=== PATIENT | female | born 1975 | race Caucasian/White ===

== ENCOUNTER 2016-08-11 09:39 | Outpatient (CLI) | payer MEDICARE ==
--- NOTE | ~2016-08-11 | HEMODYNAMI ---
PATIENT:HOWARD ROBERTS MEDICAL RECORD: [id number] : 73 LOCATION:[facility] ADMISSION DATE: 08/11/16 Generatedon:08/11/201613:11 Patient name: HOWARD ROBERTS Patient #: [id number] SSN: : 1975 Date of study: 08/11/2016 Page: Of Hemodynamic Procedure Report Patient Data Patient Demographics Procedure consent was obtained First Name: HOWARD Gender: Female Last Name: ALEJANDRA : 1975 [facility] Initial: SHAN Age: 41 year(s) Patient #: [id number] Race: Additional ID: [id number] Contact details Address: [address] [place] [address] [address] State: [place] City: [place] Zip code: [address] Past Medical History Allergies Allergen Reaction Date Comments Reported Codeine 08/11/2016 Admission Admission Data Admission Date: 08/11/2016 Admission Time: 9:39 Admit Source: Emergency Insurance Payor: Medicare, department Medicaid Weight (lbs.): 180 Weight (kg.): 81.65 Medications upon Admission Medications Dosage Times Administered Last Remarks per Delivery Day Date and Time Aspirin Yes 08/11/2016 (any) 0:00 Lab Results Lab Result Date: 08/11/2016 Lab Result Time: 0:00 Biochemistry Name Units Result Min Max CK-MB ng/ml 0.2 --(*---)-- 0 3.6 Creatinine mg/dl 1.4 --(----)*- 0.6 1.3 Troponin l ng/ml 0.017 --(-*--)-- 0 0.06 CBC Name Units Result Min Max Hemoglobin g/dl 13.9 --(*---)-- 13.5 17.5 Procedure Procedure Types Cath Procedure Diagnostic Procedure LHC LHC w/Coronaries w/Grafts PCI Procedure Coronary Stent Initial Procedure Description Procedure Date Procedure Date: 08/11/2016 Procedure Start Time: 12:52 Procedure End Time: 13:06 Procedure Staff Name Function Tristan Quintero MD Performing Physician Jordan Varner RT Scrub Marques Salinas RN Nurse Travis Howe RT Reserves Clerk Cassie Miller RT Monitor Procedure Data Cath Procedure Fluoroscopy Diagnostic fluoroscopy Total fluoroscopy Time: 3.2 time: 3.2 min min Diagnostic fluoroscopy Total fluoroscopy dose: 452 dose: 452 mGy mGy Contrast Material Contrast Material Type Amount (ml) Isovue 300 84 Entry Location Entry Primary Successful Side Size Upsize Upsize Entry Closure Succes sful Closure Location (Fr) 1 (Fr) 2 (Fr) Remarks Device Remarks Femoral Right 5 Fr 6 Fr Vascade artery Short Closure System Diagnostic catheters Device Type Used For End Catheter Placement Cordis 5Fr Pigtail LV Angiography Catheter (MP) Cordis 5Fr JL 4.0 Left Coronary Catheter (MP) Angiography Cordis Infinity 5Fr AR 2 SVG Angiography MOD catheter Procedure Complications No complications Procedure Medications Medication Administration Route Dosage Oxygen NC 2 l/min Benadryl I.V. 50 mg 0.9% NaCl I.V. 100 ml/hr Pepcid I.V. 20 mg Lidocaine 2% added to field 20 Heparin Flush Bag added to field 2 bags (1000units/500ml NS) Versed I.V. 1 mg Fentanyl I.V. 50 mcg Versed I.V. 1 mg Fentanyl I.V. 50 mcg Fentanyl I.V. 50 mcg Heparin Bolus I.V. 4000 units Integrilin (Bolus I.V. 7.3 ml 2mg/ml) Plavix P.O. 600 mg Hemodynamics Rest HGB: 13.9 (g/dl) Heart Rate: 80 (bpm) Snapshots Pre Cath Intra NCS Post Cath Vital Signs Time Heart Resp SPO2 etCO2 TQ8mugy NIBP (mmHg) Rhythm Pain Sedation Rate (ipm) (%) (mmHg) (mmHg) Status Level (bpm) 12:45:02 90 22 100 0 0 164/87(128) NSR 0 (11) 10(A) , No pain 12:49:21 86 17 100 0 0 153/82(114) NSR 0 (11) 10(A) , No pain 12:53:46 86 16 100 0 0 154/76(110) NSR 0 (11) 10(A) , No pain 12:58:04 87 19 99 0 0 150/77(116) NSR 0 (11) 9(A) , No pain 13:02:20 70 18 100 0 0 127/69(101) NSR 0 (11) 9(A) , No pain 13:06:30 92 16 99 0 0 148/89(121) NSR 0 (11) 10(A) , No pain Medications Time Medication Route Dose Verified Delivered Reason Notes Effectiveness by by 12:40:05 Oxygen NC 2 Tristan Buffie used for l/min Leon Salinas RN procedure 12:40:11 Benadryl I.V. 50 mg Tristan Buffie used for Leon Sailnas RN procedure 12:43:21 Pepcid I.V. 20 mg Tristan Petersenie Per physician pt sta davy acid Leon Salinas RN reflux/heartburn 12:43:21 0.9% NaCl I.V. 100 Tristan Buffie used for ml/hr Leon Salinas RN procedure 12:46:20 Lidocaine 2% added 20ml Tristan Tristan for local to vial Leon Quintero MD anesthetic field 12:46:31 Heparin Flush added 2 Tristan Tristan used for Bag to bags Leon Quintero MD procedure (1000units/500ml field NS) 12:50:49 Versed I.V. 1 mg Tristan Petersenie for sedation Leon Salinas RN 12:50:55 Fentanyl I.V. 50 Tristan Buffie for sedation mcg Leon Salinas RN 12:54:18 Versed I.V. 1 mg Tristan Buffie for sedation Leon Salinas RN 12:54:21 Fentanyl I.V. 50 Tristan Buffie for sedation mcg Leon Salinas RN 12:57:10 Fentanyl I.V. 50 Tristan Buffie for sedation mcg Leon Salinas RN 12:59:32 Heparin Bolus I.V. 4000 Tristan Buffie for verifi ed with dr stiven Salinas RN anticoagulation [facility] 12:59:40 Integrilin I.V. 7.3 Tristan Petersenie for (Bolus 2mg/ml) ml Leon Salinas RN antiplatelet therapy 13:09:19 Plavix P.O. 600 Tristan Petersenie for mg Leon Salinas RN antiplatelet therapy Procedure Log Time Note 12:17:27 Travis OBRIEN(R) sent for patient. Start room use. 12:17:28 Time tracking: Regular hours 12:17:32 Plan of Care:Hemodynamics will remain stable., Cardiac rhythm will remain stable., Comfort level will be maintained., Respiratory function will remain adequate., Patient/ family verbilizes understanding of procedure., Procedure tolerated without complication., Recovers from procedure without complications.. 12::46 Lab Result : Troponin l 0.017 ng/ml 12::46 Lab Result : Hemoglobin 13.9 g/dl 12::46 Lab Result : Creatinine 1.4 mg/dl 12:: Lab Result : CK-MB 0.2 ng/ml 12:25:12 Admit Source: Emergency department 12::18 Insurance Payor : Medicare, Medicaid 12:34:17 Patient received from ED to CCL 2 Alert and oriented. Tansferred to table in Supine position. 12:34:18 Warm blankets applied, and danika hugger turned on for patient comfort. 12:34:18 Correct patient and procedure confirmed by team. 12:34:20 Signed procedure consent form obtained from patient. 12:34:21 ECG and BP/O2 sat monitors applied to patient. 12:34:23 Full Disclosure recording started 12:40:05 Oxygen 2 l/min NC was given by Marques Salinas RN; used for procedure; 12:40:11 Benadryl 50 mg I.V. was given by Marques Salinas RN; used for procedure; 12:43:21 Pepcid 20 mg I.V. was given by Marques Salinas RN; Per physician; pt states acid reflux/heartburn 12:43:21 0.9% NaCl 100 ml/hr I.V. was given by Marques Salinas RN; used for procedure; 12:43:45 Baseline sample Acquired. 12:43:45 Vital chart was started 12:43:55 Rhythm: sinus rhythm 12:44:02 H&P Date Dictated: 08/11/2016 Within 30 days and on chart.. 12:44:03 Pre-procedure instructions explained to patient. 12:44:04 Pre-op teaching completed and patient verbalized understanding. 12:44:05 Family unavailable. 12:44:08 Patient NPO since Breakfast. 12:44:16 Patient allergic to Codeine 12:44:23 Is the patient allergic to Iodine/contrast media? No. 12:44:29 Is patient on blood thinner?No 12:44:31 Patient diabetic? Yes. 12:44:33 If diabetic: On Metformin? No 12:44:34 ----Pre-sedation anethsthesia assessment.---- 12:44:38 Previous problem with sedation/anesthesia? No ? 12:45:42 Snore? Yes 12:45:44 Sleep apnea? Yes 12:45:46 Deviated septum? No 12:45:47 Opens mouth fully? Yes 12:45:48 Sticks out tongue? Yes 12:45:53 Airway obstruction? No ? 12:45:58 Dentures? Yes in tight\ 12:46:02 Pre procedure: right dorsailis pedis pulse 1+ Palpable, but thready & weak; easily obliterated 12:46:05 Patient pain scale 1/10 ?. 12:46:11 IV patent on arrival in left antecubital with 0.9% NaCl at 10ml/hr. 12:46:16 Lab results completed and on chart. 12:46:20 Lidocaine 2% 20ml vial added to field was given by Tristan Quintero MD; for local anesthetic; 12:46:21 Right groin area was prepped with chlora-prep and draped in sterile fashion 12:46:22 Alarms reviewed by R. N. 12:46:22 Sharps counted by scrub and verified by R.N. 12:46:23 --------ALL STOP TIME OUT------ 12:46:24 Final Timeout: patient, procedure, and site verified with staff and physician. All members of the team are in agreement. 12:46:26 Right groin site verified by team. 12:46:29 Physical assessment completed. ASA score P 3 - A patient with severe systemic disease as per Tristan Quintero MD. 12:46:31 Heparin Flush Bag (1000units/500ml NS) 2 bags added to field was given by Tristan Quintero MD; used for procedure; 12:46:34 Sedation plan: IV Moderate Sedation Versed, Fentanyl 12:47:38 Patient Weight : 180 lbs 12:50:49 Versed 1 mg I.V. was given by Marques Salinas RN; for sedation; 12:50:55 Fentanyl 50 mcg I.V. was given by Marques Salinas RN; for sedation; 12:51:44 Zero performed for pressure channel P1 12:52:01 Use device set Femoral Dx 12:52:02 Acist Syringe opened to sterile field. 12:52:02 Bag Decanter opened to sterile field. 12:52:03 Cardinal Cath Pack opened to sterile field. 12:52:03 Terumo 5Fr [place] Sheath opened to sterile field. 12:52:04 St Heriberto 260cm J .035 wire opened to sterile field. 12:52:05 Acist Hand Control opened to sterile field. 12:52:06 Acist Manifold opened to sterile field. 12:52:06 Cordis Infinity 5Fr Multipack catheter opened to sterile field. 12:52:07 Tegaderm 4 x 4 opened to sterile field. 12:52:11 Procedure started. 12:52:18 Local anesthetic to right femoral artery with Lidocaine 2% by Tristan Quintero MD.INITIAL ACCESS ONLY 12:52:29 A 5 Fr sheath was inserted into the Right Femoral artery 12:52:39 A Cordis 5Fr Pigtail Catheter (MP) was advanced over the wire and used for LV Angiography. 12:52:42 LV angiography performed. 12:52:45 LV gram done using DALY 12:52:55 EF : 60 % 12:52:57 Catheter removed. 12:53:11 A Cordis 5Fr JL 4.0 Catheter (MP) was advanced over the wire and used for Left Coronary Angiography. 12:53:50 LCA angiography performed. 12:53:51 Catheter removed. 12:54:18 Versed 1 mg I.V. was given by Marques Salinas RN; for sedation; 12:54:21 Fentanyl 50 mcg I.V. was given by Marques Salinas RN; for sedation; 12:55:09 A Cordis Infinity 5Fr AR 2 MOD catheter was advanced over the wire and used for SVG Angiography. 12:55:16 RCA angiography performed. 12:55:29 SVG to RCA angiography performed. 12:56:20 Terumo 6Fr [place] Sheath opened to sterile field. 12:56:20 Cervantes Whisper J 300cm 0.014 guide wire opened to sterile field. 12:56:21 Merit BasixCompak Inflation Kit opened to sterile field. 12:56:52 SVG to Circ angiography performed. 12:56:55 SVG to OM angiography performed. 12:57:10 Fentanyl 50 mcg I.V. was given by Marques Salinas RN; for sedation; 12:57:58 Catheter removed. 12:58:42 Sheath upsized to a 6 Fr Short. 12:58:56 ACC PCI Site: Gay has 80% stenosis. 12:58:58 ACC Pre-intervention BING Flow is 3. 12:59:03 6 Fr AR 1 SH guide catheter was inserted over the wire 12:59:32 Heparin Bolus 4000 units I.V. was given by Marques Salinas RN; for anticoagulation; verified with dr quintero 12:59:40 Integrilin (Bolus 2mg/ml) 7.3 ml I.V. was given by Marques Salinas RN; for antiplatelet therapy; 13:01:36 Medtronic Launcher 6Fr AR 1.0 SH guide catheter opened to sterile field. 13:01:44 WHISPER wire advanced. 13:02:22 Inflation Number: 1 A Promus Premier OTW 2.5 x 24 stent was prepped and advanced across the Mid RCA. The stent was deployed at 11 FERNANDEZ for 0:10 (min:sec). 13:02:31 Inflation number: 2 The stent balloon was then re-inflated across the Mid RCA to 13 FERNANDEZ for 0:08 (min:sec). 13:02:42 Vascade 6/7 Fr Closure Device opened to sterile field. 13:02:48 Stent catheter was removed intact over wire. 13:02:49 Wire removed. 13:02:50 Guide catheter removed. 13:02:56 Contrast amount:Isovue 300 84ml. 13:03:04 Sheath removed intact; hemostasis achieved with Vascade Closure System to the Right Femoral artery. 13:03:06 Procedure ended.(Physican Out) 13:04:49 Fluoroscopy time 03.20 minutes. 13:04:54 Fluoroscopy dose: 452 mGy 13:04:54 Flurop Dose total: 452 13:04:56 Sharps counted by scrub and verified by R.N. 13:04:58 Insertion/operative site no bleeding no hematoma. 13:05:02 Post-op/insertion site Right Femoral artery dressed using a 4 x 4 and Tegaderm. 13:05:05 Post right femoral artery:stable 13:05:06 Post Procedure Pulses reassessed and unchanged 13:05:09 Post procedure rhythm: sinus rhythm 13:05:11 Post procedure instruction explained to patient.Patient verbalizes understanding. 13:05:23 Procedure type changed to Cath procedure, Diagnostic procedure, LHC, LHC w/Coronaries w/Grafts, PCI procedure, Coronary Stent Initial 13:05:27 Procedure and supply charges have been captured, reviewed, submitted and are correct. 13:05:56 Procedure Complication : No complications 13:05:58 Vital chart was stopped 13:05:58 See physician's report for complete and final results. 13:06:01 Report given to Post Procedure Room. 13:06:04 Patient transfered to Post Procedure Room with Stretcher. 13:06:06 Procedure ended. 13:06:06 Full Disclosure recording stopped 13:06:20 ACC-PCI Only Patient was given prescriptions, or instructed by Tristan Quintero MD to start/continue the following medications upon discharge: Plavix 13:06:22 End room use (Document Last) 13:09:19 Plavix 600 mg P.O. was given by Marques Salinas RN; for antiplatelet therapy; Intervention Summary Intervention Notes Time ActionType Lesion and Equipment Action# Pressure Duration Attributes Used 13:02:22 Place stent Mid RCA Promus 1 11 00:10 Premier OTW 2.5 x 24 stent 13:02:31 Reinflate Mid RCA Promus 2 13 00:08 stent Premier balloon OTW 2.5 x 24 stent Device Usage Item Name Manufacture Quantity Catalog Number Hospital Part Current Mini mal Lot# / Charge Number Stock Stock Serial# Code Acist Acist 1 54054 [id number] 043491 409868 20 Syringe Medical Systems Inc Bag Microtek 1 2002S 660485 51090 663526 5 TeamLINKS Medical Inc. Cardinal Cardinal 1 [id number] 068796 16150 748649 5 Wylio Terumo 5Fr Terumo 1 [id number] 706582 573137 302978 [address] [place] [address] Heriberto 1 295490 790665 006959 091293 30 260cm J .035 wire Acist Hand Acist 1 05837 348011 226602 443016 5 LaFourchette [employer] Inc Acist Acist 1 81496 638676 667531 581514 5 OwnEnergy Medical Systems Inc Cordis Cardinal 1 [id number] 394173 31996 379580 30 Innovand 5Fr Multipack catheter Tegaderm 4 3M 1 [id number] 227191 088630 924776 5 x 4 Cordis 5Fr Cardinal 1 [id number] 5 Pigtail Health Catheter (MP) Cordis 5Fr Cardinal 1 110677 5 JL 4.0 Health Catheter (MP) Cordis Cardinal 1 [id number] 917090 091598 107752 20 Infinity Health 5Fr AR 2 MOD catheter Terumo 6Fr Terumo 1 [id number] 472814 058016 598823 40 [place] Sheath Cervantes Cervantes 1 [id number] 710581 035054 648704 5 Whisper J Vascular 300cm 0.014 guide wire Merit Merit 1 [id number] 676182 511301 241659 15 ZoomTilt Medical Inflation Kit Medtronic Medtronic 1 [id number] 842543 78909 742650 1 Launcher 6Fr AR 1.0 SH guide catheter Promus [place] 1 [id number] 059550 552382 5 [id number] [facility] [employer] 2.5 x 24 stent Vascade 12/17 Cardiva 1 [id number] 352097 983715 606595 5 Fr Closure Medical, Device Inc. Signature Audit Nova Stage Time Signature Unsigned Intra-Procedure 08/11/2016 Travis Howe 1:11:17 PM RT(R) Signatures Monitor : Cassie Signature : Counts RT Date : Time : [facility] [address] [place] [address]
[2016-08-11 10:21] LABS: BASOPHILS 0.2 % (0.0-2.0); EOSINOPHILS 4.7 % (0-7); HEMATOCRIT 41.2 % (36.0-48.0); HEMOGLOBIN 13.9 g/dL (12-16); IMMATURE GRANULOCYTES 0.2 % (0-5); LYMPHOCYTES 25.4 % (15-50); MCH 29.9 pg (26.0-34.0); MCHC 33.7 g/dL (31.0-37.0); MCV 88.6 fL (80.0-100.0); MEAN PLATELET VOLUME 10.6 fL (7.4-10.4); MONOCYTES 5.9 % (2-11); NEUTROPHILS 63.6 % (40-80); PLATELET COUNT 229 10x3/uL (130-400); RBC 4.65 10x6/uL (4.00-5.40); RDW 13.3 % (11.5-14.5); WBC 8.7 10x3/uL (4.8-10.8)
[2016-08-11 10:38] LABS: ALBUMIN 2.8 g/dL (3.4-5.0); ALKALINE PHOSPHATASE 91 U/L (46-116); ALT (SGPT) 16 U/L (10-68); BILIRUBIN - TOTAL 0.11 mg/dL (0.2-1.3); CALC OSMOLALITY 286 mosm/kg (275-300); CALCIUM 8.9 mg/dL (8.5-10.1); CARBON DIOXIDE 29.6 mmol/L (21.0-32.0); CHLORIDE - SERUM 103 mmol/L (98-107); CREATININE - SERUM 1.4 mg/dL (0.6-1.3); POTASSIUM - SERUM 3.7 mmol/L (3.5-5.1); PROTEIN - SERUM 6.4 g/dL (6.4-8.2); SODIUM 137 mmol/L (136-145); UREA NITROGEN 16 mg/dL (7-18); eGFR NON AFRICAN AMERICAN 44 mL/min (90-120)
[2016-08-11 10:39] LABS: GLUCOSE 311 mg/dL (74-106)
[2016-08-11 10:49] LABS: CHOL - HDL RATIO 7.6 ratio (2.3-4.1); CHOLESTEROL, TOTAL 212 mg/dL (0-200); CKMB 0.2 U/L (0.0-3.6); CREATINE KINASE 54 UL (21-215); HDL CHOLESTEROL 28 mg/dL (32-96); LDL CHOLESTEROL 131 mg/dL (0-100); LDL-HDL RATIO 4.7 ratio (1.5-3.5); TRIGLYCERIDE 269 mg/dL (30-200); TROPONIN-I < 0.017 ng/mL (0.000-0.060)
[2016-08-11] MEDS ORDERED: BAYER CHEWABLE81 MG PO (13:26)
[2016-08-11] MEDS ORDERED: PLAVIX75 MG PO (13:26)
--- NOTE | 2016-08-11 13:54 | NUR ---
1335 LYING FLAT, ALL VITALS WNL. NSR RATE 87 W NO C/O CHEST PAIN, PULSES PALP X 4. R GROIN 6F VASCADE C/D/I WITH NO HEMATOMA OR BLEEDING. FAMILY AT BEDSIDE.
--- NOTE | 2016-08-11 14:32 | NUR ---
1415 LYING FLAT, AWAKE, TALKING WITH FAMILY AT BEDSIDE. R GROIN REMAINS C/D/I WITH NO HEMATOMA OR BLEEDING. ALL VITALS WNL.
--- NOTE | 2016-08-11 14:48 | NUR ---
PATIENT C/O HEARTBURN, V\O FOR GI COCKTAIL BY .
--- NOTE | 2016-08-11 14:55 | NUR ---
GI COCTAIL GIVEN ORDERED FOR INDIGESTION. WILL MONITOR FOR EFFECTIVENESS.
--- NOTE | 2016-08-11 15:14 | NUR ---
REPORT CALLED TO NICOLE GONZALEZ RN OPS. R GROIN REMAINS C/D/I WITH NO HEMATOMA OR BLEEDING. TRANSFERRED VIA STRETCHER. FAMILY AT BEDSIDE.
--- NOTE | 2016-08-15 11:12 | OP ---
PATIENT NAME: HOWARD ROBERTS MEDICAL RECORD: [id number] :73 LOCATION:D.CAT ADMISSION DATE: SURGEON: YADIEL CLIFTON MD DATE OF OPERATION: 08/11/2016 PROCEDURES: 1. PTCA stent, RCA. 2. Left heart catheterization. 3. Selective coronary angiography. 4. Left ventriculogram. 5. NÚÑEZ angiography. 6. Left ventriculogram. INDICATION: Angina and coronary artery disease. PROCEDURE IN DETAIL: After informed consent was obtained and after detailed explanation of risks, benefits as well as alternative therapies, the patient elected to proceed with angiogram and angioplasty. The right femoral area was prepped and draped in normal sterile fashion. The right femoral artery was cannulated via modified Seldinger technique with placement of 6-Vietnamese sheath. All catheters exchanged through this sheath. FINDINGS: Left ventriculogram was performed in standard 30-degree DALY view, reveals good cardiac wall motion throughout all segments. Overall ejection fraction estimated at 60%. SELECTIVE CORONARY ANGIOGRAPHY: 1. Left main is with no significant angiographic disease. 2. Left anterior descending is totally occluded proximally. 3. NÚÑZE to the LAD skipping to the LAD diagonal is widely patent. 4. Left circumflex is totally occluded in the mid vessel. 5. Vein graft to the circumflex is widely patent. 6. Right coronary artery has 80% stenosis in the mid vessel. After this, the PLV is 99% stenosed. PDA is long non-grafted. 7. PLB does have a vein graft to this. This is widely patent. PERCUTANEOUS TRANSLUMINAL CORONARY ANGIOPLASTY STENT OF THE [place] RIGHT CORONARY ARTERY leading into the non-grafted large PDA: The stent used was a 2.5 x 24 mm Promus. Result was 0% residual stenosis. OVERALL IMPRESSION: Successful percutaneous transluminal coronary angioplasty stent of the habematolel right coronary artery leading to a non-grafted PDA branch going from 80% initial stenosis to 0% residual. TRANSINT:[id number] Voice Confirmation ID: [id number] DOCUMENT ID: [id number] YADIEL CLIFTON MD at 1112 CC: [id number] DICTATION DATE: 08/11/16 1307 GRINDER SET UP OPERATOR INTERNAL: 08/11/16 1540 DEP CLI 08/11/16 [place] [address]
--- NOTE | 2016-08-15 11:12 | CN ---
PATIENT NAME:HOWARD ROBERTS MEDICAL RECORD: [id number] : 73 LOCATION:D.CAT ADMIT DATE: ACCOUNT: [id number] CONSULTING PHYSICIAN: YADIEL CLIFTON MD REFERRING PHYSICIAN: YADIEL CLIFTON MD DATE OF CONSULTATION: 08/11/2016 Cardiology Consultation ADMITTING DIAGNOSES: 1. Unstable angina. 2. Coronary artery disease. 3. Status post coronary bypass graft surgery, previous cardiac stenting. 4. Diabetes. 5. Hypertension. 6. Hyperlipidemia. HISTORY OF PRESENT ILLNESS: Mrs. Roberts presents with 2 days of chest discomfort compatible with angina, it has worsened over the past 2 days. She has had multiple episodes of chest pressure today. This is just like the discomfort she has had prior to her bypass surgery and prior 2 stents, her bypass surgery was quadruple last year at [facility] in [place]. PHYSICAL EXAMINATION: GENERAL APPEARANCE: Well-nourished, well-developed, appears stated age. Level of distress, comfortable. PSYCHIATRIC: Mental status, alert, normal affect. Orientation, oriented to time, place and person. EYES: Lids and conjunctiva, noninjected. No discharge, no pallor. ENT: Lips, teeth, gums, normal dentition. Oropharynx, no cyanosis, no pallor. NECK: Carotid arteries, bilateral normal upstroke, no bruits, no thrills. JUGULAR VEINS: No jugular venous pressure or distention. CERVICAL LYMPH NODES: Nontender, nonenlarged. THYROID: Not enlarged. Nontender. No nodules. LUNGS: Respiratory effort, unlabored. CHEST: Normal curvature. No thoracic deformity. No chest wall tenderness. Percussion, resonant. Auscultation, clear. No wheezes, no rales, no rhonchi. CARDIOVASCULAR: Precordial exam, nondisplaced. No heaves or pericardial thrills. Rate and rhythm, regular. Heart sounds, normal S1, normal S2. No S3, no gallop, no rub. Systolic murmur, not heard. Diastolic murmur, not heard. EXTREMITIES: No cyanosis, no edema. Peripheral pulses, full and equal in all extremities, except as noted. No bruits appreciated. ABDOMEN: Soft, nondistended. Normal aorta. No bruit. Nontender. No masses. Liver, nontender, no hepatomegaly. Spleen, nontender, no splenomegaly. MUSCULOSKELETAL: No joint tenderness. No joint swelling. No erythema. NEUROLOGICAL: Normal gait, normal strength, normal tone. SKIN: Warm and dry. REVIEW OF SYSTEMS: The patient reports easy bruising but reports no swollen glands. The patient reports no fever, no night sweats, no significant weight gain, no significant weight loss. No significant exercise tolerance. The patient reports no dry eyes, no irritation, no vision change. Patient reports no difficulty hearing and no ear pain. Patient reports no frequent nose bleeds or nose and sinus problems. Patient reports on arm pain on exertion. No shortness of breath while lying down. No history of heart murmur. Patient CONSULT REPORT [id number] HOWARD ROBERTS reports no cough, no wheezing or coughing up blood. Patient reports no abdominal pain, no vomiting. Normal appetite. No diarrhea and not vomiting blood. No nausea and no constipation. Patient reports no incontinence. No difficulty urinating. No hematuria. No increased frequency. Patient reports no muscle aches. No weakness, no arthralgias, no back pain. No swelling of the extremities. Patient reports no abnormal mole, no jaundice, no rashes. Reports no loss of consciousness. No weakness and no numbness. No seizures, dizziness, or headaches. The patient reports no depression, no sleep disturbance, feeling safe in a relationship and no alcohol abuse. Patient reports on fatigue. Reports no runny nose or sinus pressure. No itching, no hives, and no frequent sneezing. OVERALL IMPRESSION: Unstable angina, escalating fashion in a longstanding diabetic with severe coronary artery disease. She has a high likelihood of recurrent hemodynamically significant disease. We will proceed with coronary angiography. Further care depends upon findings of the angiography. TRANSINT:[id number] Voice Confirmation ID: [id number] DOCUMENT ID: [id number] YADIEL CLIFTON MD at 1112 CC: [id number] DICTATION DATE: 08/11/16 1212 FLIGHT OPERATIONS DISPATCH CLERK: 08/11/16 1420 DEP CLI 08/11/16 [facility] [address] [place] [address]
== END 2016-08-11 17:00 | disposition home or self-care (01) ==
LOC: D.CATH 09:39 → D.ER 09:39 → EDSTATUS 11:15 → D.CATH 17:00
PROVIDERS: Emergency Medicine
DX: I25.110 Atherosclerotic heart disease of native coronary artery with unstable angina pectoris (principal); Z95.1 Presence of aortocoronary bypass graft; Z95.5 Presence of coronary angioplasty implant and graft; E11.9 Type 2 diabetes mellitus without complications; Z79.4 Long term (current) use of insulin; I10 Essential (primary) hypertension; E78.5 Hyperlipidemia, unspecified; M54.16 Radiculopathy, lumbar region; F17.200 Nicotine dependence, unspecified, uncomplicated
CPT/HCPCS: 93459; C9600

== ENCOUNTER 2017-02-08 12:53 | Emergency (ER) | payer MEDICARE ==
[~2017-02-08 12:53] MED LIST: BAYER CHEWABLE81 MG PO; PLAVIX75 MG PO
[2017-02-08 13:34] LABS: BASOPHILS 0.4 % (0-2); EOSINOPHILS 3.4 % (0-7); HEMATOCRIT 43.5 % (36.0-48.0); IMMATURE GRANULOCYTES 0.1 % (0-5); MCH 30.4 pg (26.0-34.0); MCHC 34.5 g/dL (31.0-37.0); MCV 88.1 fL (80.0-100.0); MEAN PLATELET VOLUME 10.3 fL (7.4-10.4); MONOCYTES 7.8 % (2-11); NEUTROPHILS 61.3 % (40-80); PLATELET COUNT 244 10x3/uL (130-400); RBC 4.94 10x6/uL (4.00-5.40); RDW 13.4 % (11.5-14.5); WBC 8.1 10x3/uL (4.8-10.8)
[2017-02-08 13:46] LABS: ALBUMIN 2.9 g/dL (3.4-5.0); ALKALINE PHOSPHATASE 114 U/L (46-116); ALT (SGPT) 14 U/L (10-68); BILIRUBIN - TOTAL 0.19 mg/dL (0.2-1.3); CALC OSMOLALITY 278 mosm/kg (275-300); CALCIUM 8.4 mg/dL (8.5-10.1); CARBON DIOXIDE 28.8 mmol/L (21.0-32.0); CHLORIDE - SERUM 103 mmol/L (98-107); CREATININE - SERUM 1.4 mg/dL (0.6-1.3); POTASSIUM - SERUM 4.2 mmol/L (3.5-5.1); SODIUM 137 mmol/L (136-145); UREA NITROGEN 11 mg/dL (7-18); eGFR NON AFRICAN AMERICAN 44 mL/min (90-120)
[2017-02-08 13:47] LABS: GLUCOSE 202 mg/dL (74-106)
[2017-02-08 13:56] LABS: CKMB 0.1 U/L (0.0-3.6); CREATINE KINASE 47 UL (21-215)
[2017-02-08 13:57] LABS: TROPONIN-I < 0.017 ng/mL (0.000-0.060)
== END 2017-02-08 15:25 | disposition home or self-care (01) ==
LOC: D.ER 12:53
PROVIDERS: Family Medicine
DX: R07.89 Other chest pain (principal); E11.9 Type 2 diabetes mellitus without complications

== ENCOUNTER 2017-08-19 20:37 | Emergency (ER) | payer MEDICARE | END 2017-08-20 03:08 | disposition home or self-care (01) | LOC: D.ER 20:37 | DX: S93.601A Unspecified sprain of right foot, initial encounter (principal); X58.XXXA Exposure to other specified factors, initial encounter; Y93.02 Activity, running; Y92.89 Other specified places as the place of occurrence of the external cause; I10 Essential (primary) hypertension; E11.9 Type 2 diabetes mellitus without complications ==

== ENCOUNTER 2018-04-10 01:41 | Observation (INO) | payer MEDICARE ==
[~2018-04-10] VITALS: Ht 160 cm; Wt 81.8 kg
[2018-04-10] MEDS ORDERED: ZYRTEC10 MG PO (01:46)
[2018-04-10] MEDS ORDERED: TENORMIN50 MG PO (01:46)
[2018-04-10] MEDS ORDERED: EFFEXOR25 MG (01:47)
[2018-04-10] MEDS ORDERED: NEURONTIN600 MG PO (01:47)
[2018-04-10] MEDS ORDERED: DESERYL50 M2 PO (01:47)
[2018-04-10] MEDS ORDERED: KLONOPIN0.5 MG PO (01:49)
[2018-04-10] MEDS ORDERED: NOVOLOG (01:49)
[2018-04-10] MEDS ORDERED: ZOCOR40 MG PO (01:50)
[2018-04-10] MEDS ORDERED: NEXIUM20 MG PO (01:57)
[2018-04-10 02:45] VITALS: BP 137/70
[2018-04-10 02:59] LABS: BASOPHILS 0.6 % (0-2); EOSINOPHILS 2.6 % (0-7); HEMOGLOBIN 15.1 g/dL (12-16); IMMATURE GRANULOCYTES 0.2 % (0-5); LYMPHOCYTES 45.7 % (15-50); MCH 31.1 pg (26.0-34.0); MCHC 35.1 g/dL (31.0-37.0); MCV 88.5 fL (80.0-100.0); MEAN PLATELET VOLUME 10.8 fL (7.4-10.4); MONOCYTES 5.5 % (2-11); NEUTROPHILS 45.4 % (40-80); PLATELET COUNT 233 10x3/uL (130-400); RBC 4.86 10x6/uL (4.00-5.40); RDW 12.7 % (11.5-14.5); WBC 8.6 10x3/uL (4.8-10.8)
[2018-04-10 03:07] LABS: ALBUMIN 2.7 g/dL (3.4-5.0); ALKALINE PHOSPHATASE 113 U/L (46-116); ALT (SGPT) 14 U/L (10-68); APTT 27.1 SECONDS (22.8-39.4); BILIRUBIN - TOTAL 0.12 mg/dL (0.2-1.3); CALC OSMOLALITY 281 mosm/kg (275-300); CALCIUM 8.7 mg/dL (8.5-10.1); CARBON DIOXIDE 27.2 mmol/L (21.0-32.0); CHLORIDE - SERUM 105 mmol/L (98-107); CREATININE - SERUM 1.3 mg/dL (0.6-1.3); INR 0.99 (0.85-1.17); POTASSIUM - SERUM 3.8 mmol/L (3.5-5.1); PROTEIN - SERUM 6.4 g/dL (6.4-8.2); PROTIME 12.7 SECONDS (11.6-15.0); SODIUM 137 mmol/L (136-145); UREA NITROGEN 11 mg/dL (7-18); eGFR NON AFRICAN AMERICAN 47 mL/min (90-120)
[2018-04-10 03:09] LABS: D-DIMER-QUANTITATIVE 0.44 ug/mLFEU (0.20-0.54)
[2018-04-10 03:13] LABS: GLUCOSE 261 mg/dL (74-106)
[2018-04-10 03:17] LABS: CKMB 0.4 U/L (0.0-3.6); CREATINE KINASE 54 UL (21-215); MAGNESIUM - SERUM 1.8 mg/dL (1.8-2.4); THYROID STIMULATING HORMONE 4.07 uIU/mL (0.36-3.74)
[2018-04-10 03:18] LABS: TROPONIN-I < 0.017 ng/mL (0.000-0.060)
[2018-04-10 03:45] VITALS: BP 142/67
[2018-04-10 04:37] LABS: CREATINE KINASE 50 UL (21-215)
[2018-04-10 04:43] LABS: TROPONIN-I < 0.017 ng/mL (0.000-0.060)
[2018-04-10 05:11] VITALS: BP 124/66
[2018-04-10] MEDS ORDERED: FISH OIL 1,0001 CA1 PO (08:45)
[2018-04-10] MEDS ORDERED: CYCLOBENZAPRINE10 MG PO (08:47)
[2018-04-10] MEDS ORDERED: MAGNESIUM OXID250 MG PO (08:48)
[2018-04-10] MEDS ORDERED: ZOFRAN4 MG PO (08:49)
[2018-04-10] MEDS ORDERED: VITAMIN D31000 UNIT PO (08:50)
[2018-04-10] MEDS ORDERED: REGLAN5 MG PO (08:52)
[2018-04-10 10:42] LABS: CKMB 0.3 U/L (0.0-3.6); CREATINE KINASE 54 UL (21-215)
[2018-04-10 10:43] LABS: TROPONIN-I < 0.017 ng/mL (0.000-0.060)
[2018-04-10 11:33] VITALS: BP 132/68; BMI 31.9
[2018-04-10 12:09] VITALS: BP 139/67
[2018-04-10 12:36] VITALS: Ht 160 cm; Wt 81.8 kg
[2018-04-10 15:13] LABS: APPEARANCE CLEAR (CLEAR); COLOR DK YELLOW (YELLOW); SPECIFIC GRAVITY 1.025 (1.005-1.020)
[2018-04-10 15:14] LABS: BILIRUBIN NEGATIVE (NEGATIVE); GLUCOSE 100 mg/dL (NEGATIVE); KETONE NEGATIVE (NEGATIVE); NITRITE NEGATIVE (NEGATIVE); PROTEIN 1+ mg/dL (NEGATIVE); UROBILINOGEN NORMAL (NORMAL)
[2018-04-10 15:20] LABS: UDS - AMPHET NEGATIVE QUAL (NEGATIVE); UDS - BARB NEGATIVE QUAL (NEGATIVE); UDS - BENZO NEGATIVE QUAL (NEGATIVE); UDS - COCAINE NEGATIVE QUAL (NEGATIVE); UDS - OPIATE NEGATIVE QUAL (NEGATIVE); UDS - PCP NEGATIVE QUAL (NEGATIVE); UDS - THC POSITIVE QUAL (NEGATIVE)
[2018-04-10 15:31] VITALS: BP 140/64
[2018-04-10 17:14] LABS: CKMB 0.4 U/L (0.0-3.6); CREATINE KINASE 50 UL (21-215)
[2018-04-10 17:22] LABS: TROPONIN-I < 0.017 ng/mL (0.000-0.060)
== END 2018-04-10 20:50 | disposition left against medical advice (07) ==
LOC: D.ER 01:41 → OBSVTIME 06:37 → D.MS 06:37
PROVIDERS: Family Medicine; Internal Medicine Nephrology
DX: R47.1 Dysarthria and anarthria (principal); E11.9 Type 2 diabetes mellitus without complications; F41.9 Anxiety disorder, unspecified; I48.91 Unspecified atrial fibrillation; Z95.1 Presence of aortocoronary bypass graft; E78.5 Hyperlipidemia, unspecified; I25.10 Atherosclerotic heart disease of native coronary artery without angina pectoris; K31.84 Gastroparesis; I73.00 Raynaud's syndrome without gangrene